=== PATIENT | male | born 1945 | race Caucasian/White ===

== ENCOUNTER → 2018-08-05 | Outpatient (CLI) | payer MEDICARE ==
[~2018-08-05] MED LIST: ASPI-496 PO; ENOX40SY4 SQ; MULT-658 PO; RIVA20TA PO; atorvastatin PO; verapamil PO
[2018-08-05 12:56] LABS: MICROSCOPIC INDICATED
[2018-08-05 12:59] LABS: BASOPHILS # (AUTO) 0.02 x10^3/uL (0-0.1); BASOPHILS % (AUTO) 0 % (0-1); EOSINOPHILS # (AUTO) 0.06 x10^3/uL (0-0.4); EOSINOPHILS % (AUTO) 1 % (1-7); LYMPHOCYTES # (AUTO) 2.23 x10^3/uL (1-3.4); LYMPHOCYTES % (AUTO) 20 % (22-44); MD NO; MEAN CORPUSCULAR HEMOGLOBIN 27.8 pg (27.5-34.5); MEAN CORPUSCULAR HGB CONC 32.5 g/dL (33.2-36.2); MEAN CORPUSCULAR VOLUME 85.4 fL (81-97); MEAN PLATELET VOLUME 8.9 fL (7.4-10.4); MONOCYTES # (AUTO) 1.02 x10^3/uL (0.2-0.8); MONOCYTES % (AUTO) 9 % (2-9); NEUTROPHILS % (AUTO) 70 % (42-75); PLATELET COUNT 321 x10^3/uL (130-400); RED BLOOD COUNT 5.33 x10^6/uL (4.38-5.82); RED CELL DISTRIBUTION WIDTH 16.8 % (9.4-14.8)
[2018-08-05 13:00] LABS: CULTURE INDICATED? NO
[2018-08-05 13:10] LABS: INTERNATIONAL NORMALIZED RATIO 1.14 (0.93-1.1)
[2018-08-05 13:11] LABS: ALANINE AMINOTRANSFERASE 21 U/L (12-78); ALBUMIN 3.2 g/dL (3.4-5.0); ANION GAP 7 mmol/L (5-15); CALCIUM 10.7 mg/dL (8.5-10.1); CHLORIDE 107 mmol/L (98-107); CREATININE 0.94 mg/dL (0.7-1.3)
[2018-08-05 13:13] LABS: ALKALINE PHOSPHATASE 96 U/L (45-117); BILIRUBIN,TOTAL 0.6 mg/dL (0.2-1.0); TOTAL PROTEIN 8.4 g/dL (6.4-8.2)
== END | disposition home or self-care (01) ==
LOC: STAR 10:55
PROVIDERS: ATTEND Orthopaedic Surgery
DX: Z01.818 Encounter for other preprocedural examination (principal); M17.12 Unilateral primary osteoarthritis, left knee; T84.84XS Pain due to internal orthopedic prosthetic devices, implants and grafts, sequela; Z96.652 Presence of left artificial knee joint; Z47.1 Aftercare following joint replacement surgery
CPT/HCPCS: 36415; 80053; 81001; 83036; 85025; 85610; 85730; 87081; 87806; 93005; G0475

== ENCOUNTER 2018-08-09 08:29 | Inpatient (IN) | payer MEDICARE ==
[~2018-08-09] VITALS: Ht 188 cm; Wt 96.4 kg
[2018-08-09 09:05] VITALS: BP 154/83
[2018-08-09] MEDS ORDERED: LACTATED RINGERS 1,000 ML IV SCH (09:15)
[2018-08-09] MEDS ORDERED: VANCOMYCIN PER PHARMACY MC PRN (09:30)
[2018-08-09] MEDS ORDERED: GABAPENTIN 300 MG CAPSULE PO ONE (10:00)
[2018-08-09] MEDS ORDERED: ACETAMINOPHEN 500 MG TABLET PO ONE (10:00)
[2018-08-09] MEDS ORDERED: VANCOMYCIN 2,000 MG in SODIUM CHLORIDE 0.9% 500 ML IV ONE (10:00)
[2018-08-09] MEDS ORDERED: FENTANYL PF 250 MCG/5ML ONE ×2 (10:31→12:27)
[2018-08-09] MEDS ORDERED: MIDAZOLAM 1 MG/ML, 2ML ONE (10:31)
[2018-08-09] MEDS ORDERED: ROCURONIUM 10MG/ML,5ML ONE (10:32)
[2018-08-09] MEDS ORDERED: BUPIVACAINE/PF 0.25% ONE (10:35)
[2018-08-09] MEDS ORDERED: VANCOMYCIN 1,000 MG ONE ×2 (11:17→14:04)
[2018-08-09] MEDS ORDERED: KETOROLAC 60 MG/2 ML ONE (11:17)
[2018-08-09] MEDS ORDERED: ROPIvacaine/PF 0.5%, 20 ML ONE (11:17)
[2018-08-09] MEDS ORDERED: TRANEXAMIC ACID 100 MG/ML, 10ML ONE ×4 (11:17)
[2018-08-09] MEDS ORDERED: EPINEPHRINE 1 MG/ML, 1ML ONE (11:18)
[2018-08-09] MEDS ORDERED: SODIUM CHLORIDE 0.9% 0 ML ONE (11:18)
[2018-08-09] MEDS ORDERED: PHENYLEPHRINE 10 MG/ML ONE (11:49)
[2018-08-09] MEDS ORDERED: DEXAMETHASONE 4 MG/ML, 5ML ONE (11:49)
[2018-08-09] MEDS ORDERED: PROPOFOL 10 MG/ML, 20ML ONE (11:49)
[2018-08-09] MEDS ORDERED: KETAMINE 10 MG/ML, 20ML ONE (11:49)
[2018-08-09] MEDS: D5%-0.45% NACL 1,000 ML IV SCH (13:51)
[2018-08-09] MEDS ORDERED: HYDROmorphone 1 MG/ML, 1ML IV PRN (14:00)
[2018-08-09] MEDS ORDERED: FENTANYL PF 100 MCG/2ML IV PRN (14:00)
[2018-08-09] MEDS ORDERED: ACETAMINOPHEN 650 MG/20.3 ML UDC PO PRN (14:00)
[2018-08-09] MEDS ORDERED: BISACODYL 10 MG SUPP PR PRN (14:00)
[2018-08-09] MEDS ORDERED: ONDANSETRON 2MG/ML, 2ML IV PRN (14:00)
[2018-08-09] MEDS ORDERED: SENNA/DOCUSATE TABLET PO PRN (14:00)
[2018-08-09] MEDS ORDERED: HALOPERIDOL 5 MG/ML IV PRN (14:00)
[2018-08-09] MEDS ORDERED: ZOLPIDEM 5MG TABLET PO PRN (14:00)
[2018-08-09] MEDS ORDERED: DIPHENHYDRAMINE 50 MG CAPSULE PO PRN (14:00)
[2018-08-09] MEDS ORDERED: DIAZEPAM 5 MG TABLET PO PRN (14:00)
[2018-08-09] MEDS ORDERED: PROMETHAZINE 25 MG/ML, 1ML IM PRN (14:00)
[2018-08-09] MEDS ORDERED: ALUMINUM/MAG/SIMETHICONE 30 ML UDC PO PRN (14:00)
[2018-08-09] MEDS ORDERED: ONDANSETRON 4 MG TABLET PO PRN (14:00)
[2018-08-09] MEDS ORDERED: HYDROmorphone 2 MG/ML, 1ML IVPush PRN (14:00)
[2018-08-09] MEDS ORDERED: LORazepam 1MG TABLET PO PRN (14:00)
[2018-08-09] MEDS ORDERED: MAGNESIUM HYDROXIDE 8%, 30ML UDC PO PRN (14:00)
[2018-08-09] MEDS ORDERED: HYDROcodone/APAP 5/325 TABLET PO PRN (14:00)
[2018-08-09] MEDS ORDERED: OXYcodone 5 MG/5 ML ORAL.SOL UDC PO PRN (14:00)
[2018-08-09] MEDS ORDERED: PROMETHAZINE 12.5 MG SUPP PR PRN (14:00)
[2018-08-09] MEDS ORDERED: hydrALAzine 20 MG/ML, 1ML IV PRN (14:00)
[2018-08-09] MEDS ORDERED: OXYcodone IR 5MG TABLET PO PRN (14:00)
[2018-08-09] MEDS ORDERED: VANCOMYCIN PMX 1GM/200ML 200 ML IVPB SCH (14:00)
[2018-08-09] MEDS ORDERED: MEPERIDINE/PF 25MG/0.5ML IVPush PRN (14:00)
[2018-08-09] MEDS ORDERED: PROMETHAZINE 25 MG/ML, 1ML IV PRN (14:00)
[2018-08-09] MEDS ORDERED: TRANEXAMIC ACID 1,000 MG in SODIUM CHLORIDE 0.9% 100 ML IVPB ONE (14:30)
[2018-08-09] MEDS ORDERED: LABETALOL 5MG/ML, 20ML IVPush PRN (15:30)
[2018-08-09] MEDS ORDERED: ONDANSETRON ODT 4 MG PO PRN (15:30)
[2018-08-09] MEDS ORDERED: ENALAPRILAT 1.25 MG/ML, 2ML IVPush PRN (15:30)
[2018-08-09] MEDS ORDERED: ONDANSETRON 2MG/ML, 2ML IVPush PRN (15:30)
[2018-08-09] MEDS ORDERED: PHARMACOKINETIC CONSULTATION MC ONE (16:00)
[2018-08-09] MEDS ORDERED: PHARMACOKINETIC MONITORING MC PRN (16:00)
[2018-08-09] MEDS ORDERED: PICC FLUSH PROTOCOL XX PRN (17:30)
[2018-08-09 19:12] VITALS: BP 118/68
[2018-08-09 19:28] LABS: MEAN CORPUSCULAR HGB CONC 32.8 g/dL (33.2-36.2); MEAN CORPUSCULAR VOLUME 85.6 fL (81-97); MEAN PLATELET VOLUME 9.4 fL (7.4-10.4); PLATELET COUNT 286 x10^3/uL (130-400); RED BLOOD COUNT 4.38 x10^6/uL (4.38-5.82); RED CELL DISTRIBUTION WIDTH 16.2 % (9.4-14.8)
[2018-08-09 19:40] LABS: ALBUMIN 2.5 g/dL (3.4-5.0); ANION GAP 7 mmol/L (5-15); CHLORIDE 108 mmol/L (98-107)
[2018-08-09 19:44] LABS: ALANINE AMINOTRANSFERASE 26 U/L (12-78); ALKALINE PHOSPHATASE 76 U/L (45-117); BILIRUBIN,TOTAL 0.4 mg/dL (0.2-1.0); CREATINE KINASE, TOTAL 61 U/L (39-308); CREATININE 0.95 mg/dL (0.7-1.3); TOTAL PROTEIN 6.4 g/dL (6.4-8.2)
[2018-08-09 19:47] LABS: MD YES
[2018-08-09 19:48] LABS: BANDS%(MANUAL) 2 % (0-7); LYMPH#(MANUAL) 0.15 x10^3/uL (1-3.4); LYMPHS% (MANUAL) 1 % (22-44); MONOS#(MANUAL) 0.45 x10^3/uL (0.3-2.7); MONOS% (MANUAL) 3 % (2-9); SEG#(MANUAL) 14.01 x10^3/uL (1.8-6.8); SEGS% (MANUAL) 94 % (42-75)
[2018-08-09 19:50] LABS: <PLATELET ESTIMATE> ADEQUATE; <PLT MORPHOLOGY> NORMAL PLT MORPH; <RBC MORPHOLOGY> NORMAL
[2018-08-09] MEDS: CEFAZOLIN PMX 2GM/50ML 50 ML IVPB SCH (20:06)
[2018-08-09] MEDS: VERAPAMIL 120MG TABLET PO SCH (21:00)
[2018-08-09] MEDS ORDERED: ATORVASTATIN 40 MG TABLET PO SCH (21:00)
[2018-08-09] MEDS: ATORVASTATIN 20 MG TABLET PO SCH (21:47)
[2018-08-09] MEDS: DOCUSATE 100 MG CAPSULE PO SCH (21:47)
[2018-08-09 21:49] VITALS: BP 103/65
[2018-08-10 00:15] VITALS: BP 110/69
[2018-08-10] MEDS: D5%-0.45% NACL 1,000 ML IV SCH ×3 (03:35→22:58)
[2018-08-10] MEDS: CEFAZOLIN PMX 2GM/50ML 50 ML IVPB SCH ×2 (03:37→12:00)
[2018-08-10 05:20] LABS: EOSINOPHILS % (AUTO) 0 % (1-7); LYMPHOCYTES # (AUTO) 1.16 x10^3/uL (1-3.4); MD NO
[2018-08-10 05:31] LABS: ALANINE AMINOTRANSFERASE 23 U/L (12-78); ALBUMIN 2.3 g/dL (3.4-5.0); ANION GAP 4 mmol/L (5-15); CALCIUM 9.8 mg/dL (8.5-10.1); CHLORIDE 106 mmol/L (98-107); CREATININE 0.87 mg/dL (0.7-1.3)
[2018-08-10 05:40] LABS: ALKALINE PHOSPHATASE 73 U/L (45-117); BILIRUBIN,TOTAL 0.5 mg/dL (0.2-1.0); TOTAL PROTEIN 5.9 g/dL (6.4-8.2)
[2018-08-10 05:41] LABS: BASOPHILS # (AUTO) 0.02 x10^3/uL (0-0.1); BASOPHILS % (AUTO) 0 % (0-1); LYMPHOCYTES % (AUTO) 8 % (22-44); MEAN CORPUSCULAR HEMOGLOBIN 28.1 pg (27.5-34.5); MEAN CORPUSCULAR HGB CONC 33.1 g/dL (33.2-36.2); MEAN CORPUSCULAR VOLUME 84.9 fL (81-97); MEAN PLATELET VOLUME 9.1 fL (7.4-10.4); MONOCYTES # (AUTO) 1.12 x10^3/uL (0.2-0.8); MONOCYTES % (AUTO) 7 % (2-9); NEUTROPHILS # (AUTO) 12.84 x10^3/uL (1.8-6.8); NEUTROPHILS % (AUTO) 85 % (42-75); PLATELET COUNT 268 x10^3/uL (130-400); RED CELL DISTRIBUTION WIDTH 16.4 % (9.4-14.8)
[2018-08-10 06:46] VITALS: BP 105/69
[2018-08-10] MEDS: DAPTOMYCIN IVPB SCH (08:15)
[2018-08-10] MEDS: SODIUM CHLORIDE 0.9% IVPB SCH (08:15)
[2018-08-10] MEDS ORDERED: SENN1TAB8 PO (08:24)
[2018-08-10] MEDS ORDERED: OXYC5TAB3 PO (08:24)
[2018-08-10] MEDS: MULTIVITAMINS/MINERALS TABLET PO SCH (09:00)
[2018-08-10] MEDS: VERAPAMIL 120MG TABLET PO SCH ×2 (09:00→21:00)
[2018-08-10] MEDS: RIVAROXABAN 20 MG TABLET PO SCH (09:29)
[2018-08-10] MEDS: DOCUSATE 100 MG CAPSULE PO SCH ×2 (09:30→21:24)
[2018-08-10 13:35] VITALS: BP 130/82
[2018-08-10] MEDS: KETOROLAC 30 MG/1 ML IV SCH ×2 (14:00→22:09)
[2018-08-10] MEDS ORDERED: VANCOMYCIN 2,000 MG in SODIUM CHLORIDE 0.9% 500 ML IV SCH (16:00)
[2018-08-10 19:51] VITALS: BP 107/65
[2018-08-10] MEDS: ATORVASTATIN 20 MG TABLET PO SCH (21:24)
[2018-08-11 02:01] VITALS: BP 101/59
[2018-08-11] MEDS: KETOROLAC 30 MG/1 ML IV SCH (05:55)
[2018-08-11 06:22] LABS: BASOPHILS # (AUTO) 0.04 x10^3/uL (0-0.1); BASOPHILS % (AUTO) 0 % (0-1); EOSINOPHILS # (AUTO) 0.09 x10^3/uL (0-0.4); EOSINOPHILS % (AUTO) 1 % (1-7); LYMPHOCYTES # (AUTO) 3.06 x10^3/uL (1-3.4); LYMPHOCYTES % (AUTO) 25 % (22-44); MD NO; MEAN CORPUSCULAR HEMOGLOBIN 27.7 pg (27.5-34.5); MEAN CORPUSCULAR HGB CONC 32.6 g/dL (33.2-36.2); MEAN CORPUSCULAR VOLUME 84.9 fL (81-97); MONOCYTES # (AUTO) 1.17 x10^3/uL (0.2-0.8); MONOCYTES % (AUTO) 10 % (2-9); NEUTROPHILS % (AUTO) 64 % (42-75); PLATELET COUNT 242 x10^3/uL (130-400); RED BLOOD COUNT 3.79 x10^6/uL (4.38-5.82); RED CELL DISTRIBUTION WIDTH 16.2 % (9.4-14.8)
[2018-08-11 06:24] LABS: ANION GAP 6 mmol/L (5-15); CALCIUM 9.8 mg/dL (8.5-10.1); CHLORIDE 107 mmol/L (98-107); CREATININE 0.93 mg/dL (0.7-1.3)
[2018-08-11 06:42] VITALS: BP 111/69
[2018-08-11] MEDS: DAPTOMYCIN IVPB SCH (08:28)
[2018-08-11] MEDS: SODIUM CHLORIDE 0.9% IVPB SCH (08:28)
[2018-08-11] MEDS: VERAPAMIL 120MG TABLET PO SCH ×2 (08:28→20:40)
[2018-08-11] MEDS: DOCUSATE 100 MG CAPSULE PO SCH ×2 (08:28→20:40)
[2018-08-11] MEDS: RIVAROXABAN 20 MG TABLET PO SCH (08:29)
[2018-08-11] MEDS: MULTIVITAMINS/MINERALS TABLET PO SCH (08:29)
[2018-08-11] MEDS: D5%-0.45% NACL 1,000 ML IV SCH ×2 (09:00→19:00)
[2018-08-11 14:04] VITALS: BP 102/61
[2018-08-11 20:05] VITALS: BP 108/58
[2018-08-11] MEDS: ATORVASTATIN 20 MG TABLET PO SCH (20:41)
[2018-08-12 02:02] VITALS: BP 105/67
[2018-08-12] MEDS: D5%-0.45% NACL 1,000 ML IV SCH (04:34)
[2018-08-12 06:31] VITALS: BP 112/70
[2018-08-12] MEDS: DAPTOMYCIN IVPB SCH (08:07)
[2018-08-12] MEDS: SODIUM CHLORIDE 0.9% IVPB SCH (08:07)
[2018-08-12] MEDS: RIVAROXABAN 20 MG TABLET PO SCH (08:07)
[2018-08-12] MEDS: MULTIVITAMINS/MINERALS TABLET PO SCH (08:07)
[2018-08-12] MEDS: VERAPAMIL 120MG TABLET PO SCH (08:08)
[2018-08-12] MEDS: DOCUSATE 100 MG CAPSULE PO SCH (08:08)
[2018-08-12 12:21] VITALS: BP 115/67
== END 2018-08-12 14:50 | disposition home or self-care (01) | DRG 466 ==
LOC: ORIP 08:29 → 4NOR 15:15 → DCLOUNGE 08-12 14:10
PROVIDERS: ADMIT Orthopaedic Surgery; ATTEND Orthopaedic Surgery
PROC: 0SRW0J9 Replacement of Left Knee Joint, Tibial Surface with Synthetic Substitute, Cemented, Open Approach (ICD-10-PCS; 2018-08-09)
PROC: 02HV33Z Insertion of Infusion Device into Superior Vena Cava, Percutaneous Approach (ICD-10-PCS; 2018-08-09)
PROC: B548ZZA Ultrasonography of Superior Vena Cava, Guidance (ICD-10-PCS; 2018-08-09)
PROC: B5181ZA Fluoroscopy of Superior Vena Cava using Low Osmolar Contrast, Guidance (ICD-10-PCS; 2018-08-09)
PROC: 0SPD0JZ Removal of Synthetic Substitute from Left Knee Joint, Open Approach (ICD-10-PCS; 2018-08-09)
PROC: 0SRU0J9 Replacement of Left Knee Joint, Femoral Surface with Synthetic Substitute, Cemented, Open Approach (ICD-10-PCS; principal; 2018-08-09 10:45)
DX: T84.54XA Infection and inflammatory reaction due to internal left knee prosthesis, initial encounter (principal); A41.9 Sepsis, unspecified organism; E44.0 Moderate protein-calorie malnutrition; M00.9 Pyogenic arthritis, unspecified; S86.812A Strain of other muscle(s) and tendon(s) at lower leg level, left leg, initial encounter; D64.9 Anemia, unspecified; E78.5 Hyperlipidemia, unspecified; I10 Essential (primary) hypertension; I25.10 Atherosclerotic heart disease of native coronary artery without angina pectoris; R70.0 Elevated erythrocyte sedimentation rate; X58.XXXA Exposure to other specified factors, initial encounter; Y83.1 Surgical operation with implant of artificial internal device as the cause of abnormal reaction of the patient, or of later complication, without mention of misadventure at the time of the procedure; Z96.653 Presence of artificial knee joint, bilateral; Y92.89 Other specified places as the place of occurrence of the external cause; Y93.89 Activity, other specified; Y99.8 Other external cause status; Z79.01 Long term (current) use of anticoagulants; Z80.3 Family history of malignant neoplasm of breast; Z68.27 Body mass index [BMI] 27.0-27.9, adult; Z86.711 Personal history of pulmonary embolism; Z86.718 Personal history of other venous thrombosis and embolism; Z95.5 Presence of coronary angioplasty implant and graft
CPT/HCPCS: 36415; 36569; 76937; 77001; 80048; 80053; 82550; 85025; 85651; 86140; 87015; 87040; 87070; 87075; 87102; 87116; 87205; 87206; 89051; 90656; C1713; G0378; J0171; J0690; J0878; J1100; J1885; J2250; J2704; J2795; J3010; J3370; J3490; C1751; C1776; J2370; J7040; J7120

== ENCOUNTER 2018-10-14 08:49 | Inpatient (IN) | payer MEDICARE ==
[~2018-10-14] VITALS: Ht 188 cm; Wt 100.6 kg
[~2018-10-14 08:49] MED LIST changes: +OXYC5TAB3 PO; +SENN1TAB8 PO
[2018-10-14] MEDS ORDERED: VANCOMYCIN PER PHARMACY MC SCH (09:10)
[2018-10-14] MEDS ORDERED: LACTATED RINGERS 1,000 ML IV SCH (09:10)
[2018-10-14] MEDS ORDERED: FENTANYL PF 250 MCG/5ML ONE ×2 (09:28→12:09)
[2018-10-14] MEDS ORDERED: ACETAMINOPHEN 500 MG TABLET PO ONE (09:30)
[2018-10-14] MEDS ORDERED: GABAPENTIN 300 MG CAPSULE PO ONE (09:30)
[2018-10-14 09:41] VITALS: BP 160/103
[2018-10-14] MEDS ORDERED: LOVENOX SQ (09:41)
[2018-10-14] MEDS ORDERED: VANCOMYCIN 2,000 MG in SODIUM CHLORIDE 0.9% 500 ML IV ONE (10:00)
[2018-10-14] MEDS ORDERED: TRANEXAMIC ACID 100 MG/ML, 10ML ONE ×4 (10:37)
[2018-10-14] MEDS ORDERED: SODIUM CHLORIDE 0.9% 50 ML ONE (10:37)
[2018-10-14] MEDS ORDERED: ROPIvacaine/PF 0.2%, 20 ML ONE (10:37)
[2018-10-14] MEDS ORDERED: EPINEPHRINE 1 MG/ML, 1ML ONE (10:37)
[2018-10-14] MEDS ORDERED: KETOROLAC 60 MG/2 ML ONE (10:37)
[2018-10-14] MEDS ORDERED: VANCOMYCIN 1,000 MG ONE (10:37)
[2018-10-14] MEDS ORDERED: MAGNESIUM HYDROXIDE 8%, 30ML UDC PO PRN (11:00)
[2018-10-14] MEDS ORDERED: DIPHENHYDRAMINE 50 MG CAPSULE PO PRN (11:00)
[2018-10-14] MEDS ORDERED: PROMETHAZINE 25 MG/ML, 1ML IM PRN (11:00)
[2018-10-14] MEDS ORDERED: ONDANSETRON 4 MG TABLET PO PRN (11:00)
[2018-10-14] MEDS ORDERED: HYDROmorphone 1 MG/ML, 1ML IV PRN (11:00)
[2018-10-14] MEDS ORDERED: SENNA/DOCUSATE TABLET PO PRN (11:00)
[2018-10-14] MEDS ORDERED: ALUMINUM/MAG/SIMETHICONE 30 ML UDC PO PRN (11:00)
[2018-10-14] MEDS ORDERED: ACETAMINOPHEN 650 MG/20.3 ML UDC PO PRN (11:00)
[2018-10-14] MEDS ORDERED: ONDANSETRON 2MG/ML, 2ML IV PRN ×2 (11:00→11:30)
[2018-10-14] MEDS ORDERED: OXYcodone IR 5MG TABLET PO PRN (11:00)
[2018-10-14] MEDS ORDERED: SUCCINYLCHOLINE 20 MG/ML, 10ML ONE (11:17)
[2018-10-14] MEDS ORDERED: ROCURONIUM 10MG/ML,5ML ONE (11:17)
[2018-10-14] MEDS ORDERED: CEFAZOLIN 1,000 MG ONE (11:17)
[2018-10-14] MEDS ORDERED: DEXAMETHASONE 4 MG/ML, 1ML ONE (11:17)
[2018-10-14] MEDS ORDERED: PROPOFOL 10 MG/ML, 20ML ONE (11:17)
[2018-10-14] MEDS ORDERED: LABETALOL 5MG/ML, 20ML ONE (11:17)
[2018-10-14] MEDS ORDERED: ACETAMINOPHEN 325 MG TABLET PO PRN (11:30)
[2018-10-14] MEDS ORDERED: hydrALAzine 20 MG/ML, 1ML IV PRN (11:30)
[2018-10-14] MEDS ORDERED: OXYcodone 5 MG/5 ML ORAL.SOL UDC PO PRN (11:30)
[2018-10-14] MEDS ORDERED: FENTANYL PF 100 MCG/2ML IV PRN (11:30)
[2018-10-14] MEDS ORDERED: MEPERIDINE/PF 25MG/0.5ML IVPush PRN (11:30)
[2018-10-14] MEDS ORDERED: PROMETHAZINE 25 MG/ML, 1ML IV PRN (11:30)
[2018-10-14] MEDS ORDERED: LABETALOL 5MG/ML, 20ML IV PRN (11:30)
[2018-10-14] MEDS ORDERED: HYDROmorphone 2 MG/ML, 1ML IVPush PRN (11:30)
[2018-10-14] MEDS ORDERED: ONDANSETRON ODT 8 MG PO PRN (11:30)
[2018-10-14] MEDS ORDERED: DIAZEPAM 5 MG/ML, 2ML IVPush PRN (11:30)
[2018-10-14] MEDS ORDERED: TRANEXAMIC ACID 1,000 MG in SODIUM CHLORIDE 0.9% 100 ML IVPB ONE (14:00)
[2018-10-14 15:10] VITALS: BP 124/75
[2018-10-14] MEDS ORDERED: ATORVASTATIN MC SCH (15:30)
[2018-10-14] MEDS ORDERED: VERAPAMIL MC SCH (15:30)
[2018-10-14] MEDS: D5%-0.45NACL+KCL 20MEQ 1,000 ML IV SCH (18:25)
[2018-10-14] MEDS: CEFAZOLIN PMX 1GM/50ML 50 ML IVPB SCH (19:31)
[2018-10-14 19:55] VITALS: BP 136/77
[2018-10-14] MEDS ORDERED: ATORVASTATIN 40 MG TABLET PO SCH (21:00)
[2018-10-14] MEDS: DOCUSATE 100 MG CAPSULE PO SCH (21:00)
[2018-10-14] MEDS: VANCOMYCIN PMX 1GM/200ML 200 ML IVPB ONE ×2 (21:44→22:49)
[2018-10-14] MEDS: VERAPAMIL ER 120MG TABLET.ER PO SCH (21:44)
[2018-10-15 00:05] VITALS: BP 125/76
[2018-10-15] MEDS: CEFAZOLIN PMX 1GM/50ML 50 ML IVPB SCH (03:15)
[2018-10-15 04:00] VITALS: BP 135/79
[2018-10-15] MEDS: D5%-0.45NACL+KCL 20MEQ 1,000 ML IV SCH ×2 (04:12→10:00)
[2018-10-15] MEDS ORDERED: DEXAMETHASONE 4 MG/ML, 1ML IVPush SCH (06:00)
[2018-10-15] MEDS ORDERED: DEXAMETHASONE 4 MG/ML, 5ML ONE (06:06)
[2018-10-15] MEDS ORDERED: RIVAROXABAN 20 MG TABLET PO SCH ×2 (07:00→09:00)
[2018-10-15 07:09] VITALS: BP 143/79
[2018-10-15] MEDS: VERAPAMIL ER 120MG TABLET.ER PO SCH (07:57)
[2018-10-15] MEDS: DOCUSATE 100 MG CAPSULE PO SCH (07:58)
[2018-10-15] MEDS ORDERED: TAMSULOSIN 0.4 MG CAP.ER.24H PO SCH (09:00)
[2018-10-15] MEDS ORDERED: DOCU-131 PO (09:22)
[2018-10-15] MEDS ORDERED: ONDA4TAB13 SL (09:23)
[2018-10-15] MEDS ORDERED: MELO7.5T5 PO (09:23)
[2018-10-15] MEDS ORDERED: TRAM50TA2 PO (09:24)
[2018-10-15] MEDS ORDERED: OXYC5TAB3 PO (09:25)
[2018-10-15 13:27] VITALS: BP 148/78
[2018-10-15 15:50] VITALS: BP 153/79
[2018-10-15] MEDS ORDERED: KETOROLAC 30 MG/1 ML IV SCH (18:30)
== END 2018-10-15 16:40 | disposition home or self-care (01) | DRG 467 ==
LOC: ORIP 08:49 → 4NOR 15:04 → DCLOUNGE 10-15 16:21
PROVIDERS: ADMIT Orthopaedic Surgery; ATTEND Orthopaedic Surgery
PROC: 0SPD0EZ Removal of Articulating Spacer from Left Knee Joint, Open Approach (ICD-10-PCS; 2018-10-14)
PROC: 3E0T3BZ Introduction of Anesthetic Agent into Peripheral Nerves and Plexi, Percutaneous Approach (ICD-10-PCS; 2018-10-14)
PROC: 0SRD0J9 Replacement of Left Knee Joint with Synthetic Substitute, Cemented, Open Approach (ICD-10-PCS; principal; 2018-10-14 10:30)
DX: Z47.33 Aftercare following explantation of knee joint prosthesis (principal); M00.9 Pyogenic arthritis, unspecified; R71.0 Precipitous drop in hematocrit; Y92.89 Other specified places as the place of occurrence of the external cause; I25.10 Atherosclerotic heart disease of native coronary artery without angina pectoris; Y83.1 Surgical operation with implant of artificial internal device as the cause of abnormal reaction of the patient, or of later complication, without mention of misadventure at the time of the procedure; Z80.3 Family history of malignant neoplasm of breast; Z95.5 Presence of coronary angioplasty implant and graft; Z86.718 Personal history of other venous thrombosis and embolism; Z88.6 Allergy status to analgesic agent; I25.2 Old myocardial infarction
CPT/HCPCS: 36415; 85014; 85018; C1713; G0378; J0171; J0690; J1100; J1885; J2704; J2795; J3010; J3370; C1776; J0330; J3480; J7040; J7120

== ENCOUNTER 2018-11-25 11:07 | Inpatient (IN) | payer MEDICARE ==
[~2018-11-25] VITALS: Ht 188 cm; Wt 108.9 kg
[~2018-11-25 11:07] MED LIST changes: +BUPIVACAINE/PF 0.5% ONE; +DOCU-131 PO; +EPINEPHRINE 1 MG/ML, 1ML ONE; +FENTANYL PF 250 MCG/5ML ONE; +KETOROLAC 60 MG/2 ML ONE; +LIDOCAINE 1%, 20ML ONE; +LOVENOX SQ; +MELO7.5T5 PO; +MIDAZOLAM 1 MG/ML, 2ML ONE; +ONDA4TAB13 SL; +ROPIvacaine/PF 0.2%, 20 ML ONE; +SENN-177 PO; -SENN1TAB8 PO; +SODIUM CHLORIDE 0.9% 50 ML ONE; +TRAM50TA2 PO; +TRANEXAMIC ACID 100 MG/ML, 10ML ONE; +TRIAMCINOLONE ACETONIDE 40 MG/ML, 1ML ONE; +VANCOMYCIN 1,000 MG ONE
[2018-11-25] MEDS ORDERED: VANCOMYCIN PER PHARMACY MC STA (11:30)
[2018-11-25] MEDS ORDERED: GABAPENTIN 300 MG CAPSULE PO ONE (11:30)
[2018-11-25] MEDS ORDERED: ACETAMINOPHEN 500 MG TABLET PO ONE (11:30)
[2018-11-25] MEDS ORDERED: ROPIvacaine/PF 0.2%, 20 ML INFIL ONE (11:37)
[2018-11-25] MEDS ORDERED: TRIAMCINOLONE ACETONIDE 40 MG/ML, 1ML IM ONE (11:37)
[2018-11-25] MEDS ORDERED: EPINEPHRINE 1 MG/ML, 1ML INFIL ONE (11:37)
[2018-11-25] MEDS ORDERED: TRANEXAMIC ACID 100 MG/ML, 10ML IVPB ONE (11:37)
[2018-11-25] MEDS ORDERED: LIDOCAINE 1%, 10ML IM ONE (11:37)
[2018-11-25] MEDS ORDERED: BUPIVACAINE/PF 0.5% INFIL ONE (11:37)
[2018-11-25] MEDS ORDERED: KETOROLAC 60 MG/2 ML IM ONE (11:37)
[2018-11-25] MEDS ORDERED: VANCOMYCIN 1,000 MG IM ONE (11:37)
[2018-11-25] MEDS ORDERED: ENOX40SY4 SQ (11:53)
[2018-11-25] MEDS ORDERED: ATOR40TA78 PO (11:53)
[2018-11-25] MEDS ORDERED: LACTATED RINGERS 1,000 ML IV SCH (11:53)
[2018-11-25] MEDS ORDERED: VERA120T5 PO (11:53)
[2018-11-25] MEDS ORDERED: PLEASE ENTER HEIGHT AND WEIGHT MC SCH (12:00)
[2018-11-25] MEDS ORDERED: VANCOMYCIN 1,700 MG in SODIUM CHLORIDE 0.9% 250 ML IV ONE (12:30)
[2018-11-25] MEDS ORDERED: DEXAMETHASONE 4 MG/ML, 1ML ONE (13:15)
[2018-11-25] MEDS ORDERED: PROPOFOL 10 MG/ML, 20ML ONE (13:15)
[2018-11-25] MEDS ORDERED: SUCCINYLCHOLINE 20 MG/ML, 10ML ONE (13:15)
[2018-11-25] MEDS ORDERED: CEFAZOLIN 1,000 MG ONE (13:15)
[2018-11-25] MEDS ORDERED: ONDANSETRON 2MG/ML, 2ML ONE (13:15)
[2018-11-25] MEDS ORDERED: ROCURONIUM 10MG/ML,5ML ONE (13:15)
[2018-11-25] MEDS ORDERED: LABETALOL 5MG/ML, 20ML IV PRN (14:00)
[2018-11-25] MEDS ORDERED: MORPHINE SULFATE 4 MG/ML, 1ML IVPush PRN (14:00)
[2018-11-25] MEDS ORDERED: FENTANYL PF 100 MCG/2ML IV PRN (14:00)
[2018-11-25] MEDS ORDERED: METOCLOPRAMIDE 5 MG/ML, 2ML IV PRN (14:00)
[2018-11-25] MEDS ORDERED: OXYcodone 5 MG/5 ML ORAL.SOL UDC PO PRN (14:00)
[2018-11-25] MEDS ORDERED: MEPERIDINE/PF 25MG/0.5ML IVPush PRN (14:00)
[2018-11-25] MEDS ORDERED: hydrALAzine 20 MG/ML, 1ML IV PRN (14:00)
[2018-11-25] MEDS ORDERED: HYDROmorphone 2 MG/ML, 1ML IVPush PRN (14:00)
[2018-11-25] MEDS ORDERED: LORazepam 2 MG/ML, 1ML IVPush PRN (14:00)
[2018-11-25] MEDS ORDERED: ACETAMINOPHEN 325 MG TABLET PO PRN (15:00)
[2018-11-25] MEDS ORDERED: OXYcodone IR 5MG TABLET PO PRN (15:00)
[2018-11-25] MEDS ORDERED: BISACODYL 10 MG SUPP PR PRN (15:00)
[2018-11-25] MEDS ORDERED: SENNA/DOCUSATE TABLET PO PRN (15:00)
[2018-11-25] MEDS ORDERED: LORazepam 1MG TABLET PO PRN (15:00)
[2018-11-25] MEDS ORDERED: PROMETHAZINE 25 MG/ML, 1ML IM PRN (15:00)
[2018-11-25] MEDS ORDERED: DIAZEPAM 5 MG TABLET PO PRN (15:00)
[2018-11-25] MEDS ORDERED: HYDROcodone/APAP 5/325 TABLET PO PRN (15:00)
[2018-11-25] MEDS ORDERED: HYDROmorphone 1 MG/ML, 1ML INJ IV PRN (15:00)
[2018-11-25] MEDS ORDERED: ONDANSETRON 2MG/ML, 2ML IV PRN (15:00)
[2018-11-25] MEDS ORDERED: TRANEXAMIC ACID 1,000 MG in SODIUM CHLORIDE 0.9% 100 ML IVPB ONE (15:00)
[2018-11-25] MEDS ORDERED: PROMETHAZINE 12.5 MG SUPP PR PRN (15:00)
[2018-11-25] MEDS ORDERED: ALUMINUM/MAG/SIMETHICONE 30 ML UDC PO PRN (15:00)
[2018-11-25] MEDS ORDERED: ONDANSETRON 4 MG TABLET PO PRN (15:00)
[2018-11-25] MEDS ORDERED: MAGNESIUM HYDROXIDE 8%, 30ML UDC PO PRN (15:00)
[2018-11-25] MEDS ORDERED: ZOLPIDEM 5MG TABLET PO PRN (15:00)
[2018-11-25] MEDS ORDERED: DIPHENHYDRAMINE 50 MG CAPSULE PO PRN (15:00)
[2018-11-25] MEDS ORDERED: FENTANYL PF 100 MCG/2ML ONE (15:04)
[2018-11-25] MEDS ORDERED: OXYcodone 5 MG/5 ML ORAL.SOL UDC ONE (15:31)
[2018-11-25 16:00] VITALS: BP 128/77
[2018-11-25 20:11] VITALS: BP 122/79
[2018-11-25] MEDS: CEFAZOLIN PMX 2GM/50ML 50 ML IVPB SCH (20:24)
[2018-11-25] MEDS: DOCUSATE 100 MG CAPSULE PO SCH (20:24)
[2018-11-25] MEDS: VERAPAMIL 120MG TABLET PO SCH (20:25)
[2018-11-25] MEDS ORDERED: ATORVASTATIN 40 MG TABLET PO SCH (21:00)
[2018-11-26 00:01] VITALS: BP 116/70
[2018-11-26] MEDS: D5%-0.45% NACL 1,000 ML IV SCH ×2 (02:27→07:00)
[2018-11-26] MEDS: CEFAZOLIN PMX 2GM/50ML 50 ML IVPB SCH (04:36)
[2018-11-26 05:00] VITALS: BP 128/64
[2018-11-26] MEDS ORDERED: DEXAMETHASONE 4 MG/ML, 1ML IVPush SCH (06:00)
[2018-11-26 08:13] VITALS: BP 128/79
[2018-11-26] MEDS: DOCUSATE 100 MG CAPSULE PO SCH (08:22)
[2018-11-26] MEDS: VERAPAMIL 120MG TABLET PO SCH (08:22)
[2018-11-26] MEDS ORDERED: MULTIVITAMINS/MINERALS TABLET PO SCH (09:00)
[2018-11-26] MEDS ORDERED: RIVAROXABAN 20 MG TABLET PO SCH (09:00)
[2018-11-26] MEDS ORDERED: KETOROLAC 30 MG/1 ML IV SCH (15:00)
== END 2018-11-26 10:32 | disposition home or self-care (01) | DRG 468 ==
LOC: ORIP 11:07 → 4NOR 16:00 → DCLOUNGE 11-26 10:25
PROVIDERS: ADMIT Orthopaedic Surgery; ATTEND Orthopaedic Surgery
PROC: 0SRW0JZ Replacement of Left Knee Joint, Tibial Surface with Synthetic Substitute, Open Approach (ICD-10-PCS; 2018-11-25)
PROC: 0SPW0JZ Removal of Synthetic Substitute from Left Knee Joint, Tibial Surface, Open Approach (ICD-10-PCS; 2018-11-25)
PROC: 0MQP0ZZ Repair Left Knee Bursa and Ligament, Open Approach (ICD-10-PCS; 2018-11-25)
PROC: 3E0U33Z Introduction of Anti-inflammatory into Joints, Percutaneous Approach (ICD-10-PCS; 2018-11-25)
PROC: 3E0U3BZ Introduction of Anesthetic Agent into Joints, Percutaneous Approach (ICD-10-PCS; 2018-11-25)
PROC: 3E0T3BZ Introduction of Anesthetic Agent into Peripheral Nerves and Plexi, Percutaneous Approach (ICD-10-PCS; principal; 2018-11-25 13:15)
DX: T84.023A Instability of internal left knee prosthesis, initial encounter (principal); I10 Essential (primary) hypertension; E78.5 Hyperlipidemia, unspecified; S86.812A Strain of other muscle(s) and tendon(s) at lower leg level, left leg, initial encounter; X58.XXXA Exposure to other specified factors, initial encounter; M17.11 Unilateral primary osteoarthritis, right knee; Y83.1 Surgical operation with implant of artificial internal device as the cause of abnormal reaction of the patient, or of later complication, without mention of misadventure at the time of the procedure; Z95.5 Presence of coronary angioplasty implant and graft; Z88.6 Allergy status to analgesic agent; Y92.89 Other specified places as the place of occurrence of the external cause; Y93.89 Activity, other specified; Y99.8 Other external cause status; D50.0 Iron deficiency anemia secondary to blood loss (chronic)
CPT/HCPCS: 36415; 85014; 85018; 93005; G0378; J0171; J0690; J1100; J1885; J2250; J2405; J2704; J2795; J3010; J3301; J3370; C1776; J0330; J7050; J7120